=== PATIENT | male | born 1960 | race Caucasian/White ===

== ENCOUNTER 2020-12-07 11:55 | Observation (INO) ==
[2020-12-07] MEDS ORDERED: BENADRYL INJ 50 MG VIAL IVP ONE (14:41)
[2020-12-07] MEDS ORDERED: TYLENOL 325 MG TAB PO ONE ×2 (14:42→17:52)
[2020-12-07 15:36] LABS: BASOPHILS % (AUTO) 0.7 % (0.2-1.0); EOSINOPHILS # (AUTO) 0.1 x10^3/uL (0.0-0.2); EOSINOPHILS % (AUTO) 1.8 % (0.9-2.9); HEMATOCRIT 24.9 % (42.0-54.0); HEMOGLOBIN 7.6 g/dL (13.5-18.0); LYMPHOCYTES # (AUTO) 1.4 X10^3/uL (1.3-2.9); LYMPHOCYTES % (AUTO) 29.7 % (21.0-51.0); MEAN CORPUSCULAR HEMOGLOBIN 18.3 pg (27.0-34.0); MEAN CORPUSCULAR HGB CONC 30.3 g/dL (33.0-35.0); MEAN CORPUSCULAR VOLUME 60.3 fL (80.0-100.0); MEAN PLATELET VOLUME 8.3 fL (7.4-11.0); MONOCYTES # (AUTO) 0.4 x10^3/uL (0.3-0.8); MONOCYTES % (AUTO) 8.7 % (0.0-13.0); NEUTROPHILS # (AUTO) 2.8 x10^3/uL (2.2-4.8); NEUTROPHILS % (AUTO) 59.1 % (42.0-75.0); PLATELET COUNT 220 X10^3/uL (150.0-450.0); RED BLOOD COUNT 4.13 X10^6/uL (4.7-6.0); RED CELL DISTRIBUTION WIDTH 15.7 % (11.6-16.5); WHITE BLOOD COUNT 4.7 X10^3/uL (3.6-10.0)
[2020-12-07 15:38] LABS: BLOOD UREA NITROGEN 19 mg/dL (7-18); CALCIUM 8.7 mg/dL (8.5-10.1); CARBON DIOXIDE 30.6 mmol/L (21-32); CHLORIDE 103 mmol/L (98-107); CREATININE 1.14 mg/dL (0.70-1.30); SODIUM 140 mmol/L (136-145); eGFR NON BLACK RACES > 60 (>60)
[2020-12-07 16:12] LABS: MICROCYTOSIS 2+; PLATELET MORPHOLOGY COMMENT NORMAL (NORMAL); POIKILOCYTOSIS 3+
[2020-12-07] MEDS: NS 1000 ML 1,000 ML IV SCH (16:39)
[2020-12-07] MEDS: HYDROCHLOROTHIAZIDE 25 MG TAB PO SCH (16:39)
[2020-12-07 17:45] VITALS: BMI 26.3
[2020-12-07] MEDS ORDERED: BENADRYL INJ 50 MG VIAL ONE (17:52)
[2020-12-07] MEDS: LOPRESSOR TAB 25 MG PO SCH (21:00)
[2020-12-07 21:09] LABS: ALANINE AMINOTRANSFERASE 23 Units/L (12-78); ALBUMIN 3.8 g/dL (3.4-5.0); ALKALINE PHOSPHATASE 90 Units/L (46-116); ASPARTATE AMINO TRANSFERASE 16 Units/L (15-37); TOTAL PROTEIN 6.9 g/dL (6.4-8.2)
[2020-12-08 01:45] LABS: HEMATOCRIT 28.1 % (42.0-54.0); HEMOGLOBIN 8.8 g/dL (13.5-18.0)
[2020-12-08] MEDS: NS 1000 ML 1,000 ML IV SCH (04:01)
[2020-12-08] MEDS ORDERED: SYNTHROID 112 mcg TAB PO SCH (06:30)
[2020-12-08 06:42] LABS: BASOPHILS % (AUTO) 0.8 % (0.2-1.0); EOSINOPHILS # (AUTO) 0.2 x10^3/uL (0.0-0.2); EOSINOPHILS % (AUTO) 4.3 % (0.9-2.9); HEMATOCRIT 29.5 % (42.0-54.0); HEMOGLOBIN 9.2 g/dL (13.5-18.0); LYMPHOCYTES # (AUTO) 1.6 X10^3/uL (1.3-2.9); LYMPHOCYTES % (AUTO) 33.4 % (21.0-51.0); MEAN CORPUSCULAR HEMOGLOBIN 20.2 pg (27.0-34.0); MEAN CORPUSCULAR HGB CONC 31.1 g/dL (33.0-35.0); MEAN CORPUSCULAR VOLUME 64.8 fL (80.0-100.0); MEAN PLATELET VOLUME 8.4 fL (7.4-11.0); MONOCYTES # (AUTO) 0.6 x10^3/uL (0.3-0.8); MONOCYTES % (AUTO) 12.1 % (0.0-13.0); NEUTROPHILS # (AUTO) 2.3 x10^3/uL (2.2-4.8); NEUTROPHILS % (AUTO) 49.4 % (42.0-75.0); PLATELET COUNT 209 X10^3/uL (150.0-450.0); RED BLOOD COUNT 4.55 X10^6/uL (4.7-6.0); RED CELL DISTRIBUTION WIDTH 18.5 % (11.6-16.5); WHITE BLOOD COUNT 4.7 X10^3/uL (3.6-10.0)
[2020-12-08 06:57] LABS: ALANINE AMINOTRANSFERASE 21 Units/L (12-78); ALBUMIN 3.4 g/dL (3.4-5.0); ALKALINE PHOSPHATASE 82 Units/L (46-116); ASPARTATE AMINO TRANSFERASE 12 Units/L (15-37); BLOOD UREA NITROGEN 15 mg/dL (7-18); CALCIUM 8.3 mg/dL (8.5-10.1); CARBON DIOXIDE 31.4 mmol/L (21-32); CHLORIDE 108 mmol/L (98-107); CREATININE 1.17 mg/dL (0.70-1.30); SODIUM 144 mmol/L (136-145); TOTAL PROTEIN 6.3 g/dL (6.4-8.2); eGFR NON BLACK RACES > 60 (>60)
[2020-12-08 07:31] LABS: HYPOCHROMASIA 2+; MICROCYTOSIS 2+; PLATELET MORPHOLOGY COMMENT NORMAL (NORMAL)
[2020-12-08 08:25] VITALS: BP 122/61
[2020-12-08] MEDS: LOPRESSOR TAB 25 MG PO SCH (08:58)
[2020-12-08] MEDS: HYDROCHLOROTHIAZIDE 25 MG TAB PO SCH (08:58)
--- NOTE | 2020-12-08 09:25 | DR.CARTERS ---
Short Stay Summary - Admission Date Date of Admission: 12/07/20 - Discharge Date Discharge Date: 12/08/20 - Admission Diagnoses (1) Anemia Status: Acute - Hospital Course Hospital Course: TIME SPENT ON CLINICAL ASSESSMENT, REVIEWING LABS AND IMAGING, DECISION MAKING, AND DOCUMENTATION GREATER THAN 75 MINUTES. WAS ADMITTED FOR ANEMIA AND SUSPECTED GI BLEED. HE COMPLAINED OF INCREASED FATIGUE, WEAKNESS, AND FEELING LIGHTHEADED. OUTPATIENT LABS REVEALED A HGB OF 7.3. PATIENT DENIED BLOOD IN STOOL OR SHORTNESS OF BREATH. HE DENIES KNOWLEDGE OF ANEMIA IN THE PAST. HE HAS A HISTORY OF HTN, HYPOTHYROIDISM, AND CARDIAC ARRHYTHMIA. HE HAS HAD AN ABLASION AND NO LONGER TAKES BLOOD THINNERS. HE WAS TAKING AN 81MG ASPIRIN DAILY, BUT STOPPED IN FOUR DAYS AGO. HE WAS ADMITTED FOR FURTHER EVALUATION AND TREATMENT. ON ARRIVAL, HIS VITALS WERE 98.3-50-18-100%-143/68. LABS WERE OBTAINED. ABNORMAL LAB VALUES INCLUDED THE FOLLOWING: RBC 4.13, HGB 7.6, HCT 24.9, BUN 19. COVID-19 NEGATIVE. AN EKG WAS OBTAINED AND REVEALED: SINUS RHYTHM WITH HR 53. HE WAS STARTED ON NORMAL SALINE AT 80 ML/HR AND HIS HOME MEDICATIONS WERE RESUMED. WE TYPED/SCREENED, CROSSMATCHED, AND TRANSFUSED TWO UNITS OF PACKED RED BLOOD CELLS. OTHERWISE, WE PLANNED TO FOLLOW UP WITH AM LABS AND CONTINUE TO MONITOR. ON MORNING ROUNDS, PATIENT IS ALERT AND ORIENTED, LYING IN BED ON MORNING ROUNDS. HE DENIES COMPLAINTS AND REPORTS IMPROVEMENT IN SYMPTOMS SINCE RECEIVING BLOOD. ON EXAMINATION, HE IS BRADYCARDIC WITH HR IN THE 50s. BILATERAL LUNGS ARE CLEAR TO AUSCULTATION. ABDOMEN IS ROUND, SOFT, AND NON-TENDER WITH NORMAL BOWEL SOUNDS NOTED IN ALL QUADRANTS. HIS VITALS THIS MORNING ARE: 97.8-50-20-99%-122/61. LABS WERE OBTAINED. ABNORMAL LAB VALUES INCLUDE THE FOLLOWING: RBC 4.55, HGB INCREASED TO 9.2, HCT INCREASED TO 29.5, CHLORIDE 108, CALCIUM 8.3, AST 12, TOTAL PROTEIN 6.3. WE PLANNED FOR DISCHARGE. WE DISCUSSED THE IMPORTANCE OF FOLLOW UP WITH GASTROENTEROLOGY FOR ENDOSCOPY. PATIENT MARTHA LIZED UNDERSTANDING OF ALL DISCHARGE INSTRUCTIONS. HE WAS GIVEN PRESCRIPTIONS FOR PEPCID 40MG PO BID AND PROTONIX 40MG PO BID. HE WAS INSTRUCTED TO FOLLOW UP WITH US IN 1 WEEK AND GASTROENTEROLOGY SOON POSSIBLE. OTHERWISE, PATIENT WAS DISCHARGED HOME WITH FAMILY IN STABLE CONDITION. TIME SPENT ON CLINICAL ASSESSMENT, REVIEWING LABS AND IMAGING, DECISION MAKING, PREPARING DISCHARGE PAPERS, DISCHARGE INSTRUCTIONS, AND DOCUMENTATION GREATER THAN 75 MINUTES. - Discharge Medications Discharge Medications: Home Medication List cholecalciferol (vitamin D3) [Vitamin D3] 125 mcg PO DAILY 12/07/20 [History] folic acid 1 mg PO DAILY 12/07/20 [History] hydrochlorothiazide 25 mg PO QAM 12/07/20 [History] levothyroxine [Synthroid] 112 mcg PO DAILY 12/07/20 [History] metoprolol tartrate 12.5 mg PO BID 12/07/20 [History] famotidine [Pepcid] 40 mg PO BID #60 tab 12/08/20 [Rx] pantoprazole 40 mg PO BID #60 tab 12/08/20 [Rx] Prescriptions: famotidine [Pepcid] Silas Lamar pantoprazole Silas Lamar - Discharge Plan Disposition: 01 HOME, SELF-CARE Condition: Stable Prescriptions: famotidine [Pepcid] 40 mg PO BID #60 tab pantoprazole 40 mg PO BID #60 tab - Follow up/Referrals Follow up/Referrals: Silas Lamar [Primary Care Provider] - 1 WEEK OSVALDO FOX [STAFF PHYSICIAN] - 3 DAYS - Instructions Additional Instructions: DIET TOLERATED. ACTIVITY TOLERATED. Forms: Excuse From Work or School, Precautions for COVID19, Patient Portal, Social Distancing
[2020-12-08] MEDS ORDERED: HYDROCHLOROTHIAZIDE 25 MG TAB PO SCH (15:00)
== END 2020-12-08 12:25 | disposition home or self-care (01) ==
LOC: MED/SURG
PROVIDERS: ADMIT Internal Medicine; ATTEND Internal Medicine
DX: D64.9 Anemia, unspecified; R42 Dizziness and giddiness; Z20.822 Contact with and (suspected) exposure to COVID-19